=== PATIENT | male | born 1965 | race American Indian/Alaskan Native ===

== ENCOUNTER 2020-12-28 08:31 | Emergency (ER) | payer BC ==
--- NOTE | 2020-12-28 08:46 | Event Note ---
ED Screening Note ED Screening Note: Here for medical clearance for [place] etoh and cocaine last week hx htn off meds for years [facility] none mom a/w dad dec addiction This initial assessment/diagnostic orders/clinical plan/treatment(s) is/are subject to change based on patients health status, clinical progression and re-assessment by fellow clinical providers in the ED. Further treatment and workup at subsequent clinical providers discretion. Patient/guardian urged not to elope from the ED as their condition may be serious if not clinically assessed and managed. Initial orders include: bp elevated; sob; cocaine use- ro acs/ bp control for [place]
[2020-12-28] MEDS ORDERED: cloNIDine 0.2 MG TAB PO ONE (09:07)
--- NOTE | 2020-12-28 09:07 | Emergency Department Report ---
ED General Adult HPI - General Chief complaint: Medical Clearance Stated complaint: ELEVATED BP Time Seen by Provider: 12/28/20 08:43 Source: patient Mode of arrival: Ambulatory Limitations: No Limitations - History of Present Illness Initial comments: 55-year-old male, history of hypertension, schizophrenia, depression, presents to ED for elevated blood pressure. Patient states since his sister of COVID-19 last Mother's Day, he has been on a downward spiral. Patient states over the last month he has been drinking alcohol and using crack cocaine more frequently. He also stopped taking his Wellbutrin. Patient denies any SI, HI, hallucinations. He reports he presented to [facility] for help, however they sent him to the ED because his blood pressure is too high. Patient states he was taken HCTZ but has been off of it for about 1 year. -: unknown Quality: other (painless) Improves with: medication Worsens with: none Associated Symptoms: denies: chest pain, headaches, shortness of breath Treatments Prior to Arrival: none - Related Data Previous Rx's Medication Instructions Recorded Last Taken Type hydroCHLOROthiazide [HCTZ] 25 mg PO QDAY #30 tablet 12/28/20 Unknown Rx Allergies Allergy/AdvReac Type Severity Reaction Status Date / Time No Known Allergies Allergy Unverified 12/28/20 08:43 ED Review of Systems ROS: Stated complaint: ELEVATED BP Other details as noted in HPI Comment: All other systems reviewed and negative Cardiovascular: denies: chest pain Neurological: denies: headache Psychiatric: denies: auditory hallucinations, visual hallucinations, homicidal thoughts, suicidal thoughts ED Past Medical Hx - Past Medical History Hx Hypertension: Yes Hx Psychiatric Treatment: Yes - Social History Smoking Status: Current Every Day Smoker - Medications Home Medications: Home Medications Medication Instructions Recorded Confirmed Last Taken Type hydroCHLOROthiazide [HCTZ] 25 mg PO QDAY #30 tablet 12/28/20 Unknown Rx ED Physical Exam - General Limitations: No Limitations General appearance: alert, in no apparent distress - Head Head exam: Present: atraumatic, normocephalic - Eye Eye exam: Present: normal appearance, EOMI - ENT ENT exam: Present: mucous membranes moist - Neck Neck exam: Present: normal inspection - Respiratory Respiratory exam: Present: normal lung sounds bilaterally. Absent: respiratory distress - Cardiovascular Cardiovascular Exam: Present: regular rate, normal rhythm - GI/Abdominal GI/Abdominal exam: Present: soft. Absent: distended, tenderness - Extremities Exam Extremities exam: Present: normal inspection - Neurological Exam Neurological exam: Present: alert, oriented X3 - Psychiatric Psychiatric exam: Present: normal affect, normal mood - Skin Skin exam: Present: warm, dry, intact, normal color ED Course Vital Signs 12/28/20 08:41 Temperature 97.5 F L Pulse Rate 96 H Respiratory 18 Rate Blood Pressure 199/111 O2 Sat by Pulse 97 Oximetry ED Medical Decision Making - Lab Data Result diagrams: 12/28/20 09:06 12/28/20 09:06 - Medical Decision Making 55-year-old male, noncompliant with his BP medications presents to ED for [facility] clearance for mental health admission. Blood pressure elevated, however patient is asymptomatic. Clonidine given. BP improved. Patient will be given prescription for HCTZ which he states he took in the past. Labs are unremarkable except for cocaine positive drug screen. Will discharge at this time. Return precautions given. - Differential Diagnosis Uncontrolled hypertension Critical care attestation.: If time is entered above; I have spent that time in minutes in the direct care of this critically ill patient, excluding procedure time. ED Disposition Clinical Impression: Uncontrolled hypertension, Cocaine abuse, Substance abuse Disposition: DC-01 TO HOME OR SELFCARE Is pt being admited?: No Condition: Stable Instructions: Substance Use Disorder and Mental Illness, Hypertension (ED) Additional Instructions: Mr. [place] is medically clear for mental health evaluation. Prescriptions: hydroCHLOROthiazide [HCTZ] 25 mg PO QDAY #30 tablet Referrals: PRIMARY [facility] [Primary Care Provider] - 3-5 Days [facility] [Provider Group] - 3-5 Days Time of Disposition: 10:53
[2020-12-28 09:53] LABS: Basophils # (Auto) 0.1 K/mm3 (0.0-0.1); Basophils % (Auto) 1.3 % (0.0-1.8); Eosinophils # (Auto) 0.1 K/mm3 (0.0-0.4); Eosinophils % (Auto) 1.1 % (0.0-4.3); Hematocrit 51.2 % (35.5-45.6); Hemoglobin 17.1 gm/dl (11.8-15.2); Lymphocytes # (Auto) 2.4 K/mm3 (1.2-5.4); Lymphocytes % (Auto) 25.4 % (13.4-35.0); Mean Corpuscular HGB Conc 33 % (32-34); Mean Corpuscular Volume 90 fl (84-94); Monocytes # (Auto) 0.6 K/mm3 (0.0-0.8); Monocytes % (Auto) 6.1 % (0.0-7.3); Platelet Count 217 K/mm3 (140-440); Red Blood Count 5.71 M/mm3 (3.65-5.03); Red Cell Distribution Width 15.6 % (13.2-15.2)
[2020-12-28 10:17] LABS: Alanine Aminotransferase 11 units/L (7-56); Albumin 4.2 g/dL (3.9-5); BUN/Creatinine Ratio 13; Blood Urea Nitrogen 15 mg/dL (9-20); Hemolysis Index 5
[2020-12-28 10:25] LABS: Bilirubin,Urine NEG (Negative); Blood,Urine SM (Negative); Color,Urine Yellow (Yellow); Mucus,Urine FEW /HPF; Protein,Urine <15 mg/dL mg/dL (Negative); Urobilinogen,Urine < 2.0 mg/dL (<2.0); WBC,Urine < 1.0 /HPF (0.0-6.0)
[2020-12-28 10:32] LABS: Amphetamine Screen,Urine Negative; Benzodiazepines Screen,Urine Negative; Cannabinoid Screen,Urine Negative; Methadone Screen,Urine Negative; Opiate Screen,Urine Negative
[2020-12-28 10:56] LABS: Cocaine Screen,Urine PRESUMPTIVE POSITIVE
[2020-12-28 15:06] VITALS: BP 141/99
== END 2020-12-28 11:27 | disposition home or self-care (01) ==
LOC: ED 08:31
DX: I10 Essential (primary) hypertension (principal); F14.10 Cocaine abuse, uncomplicated; F19.10 Other psychoactive substance abuse, uncomplicated; F17.200 Nicotine dependence, unspecified, uncomplicated; Z79.899 Other long term (current) drug therapy
CPT/HCPCS: 36415; 80053; 80307; 80320; 81001; 84484; 85025; 93005; 99283; G0480